=== PATIENT | female | born 1965 | race American Indian/Alaskan Native ===

== ENCOUNTER 2016-08-09 16:15 | Outpatient (CLI) | payer BC ==
--- NOTE | 2016-08-10 08:20 | Magnetic Resonance Report ---
MRI OF THE BRAIN AND PITUITARY WITHOUT AND WITH CONTRAST: 08/09/16 CLINICAL: Pituitary adenoma. COMPARISON: None. TECHNIQUE: Sagittal T1, axial FLAIR and T2 whole brain sequences plus sagittal, coronal and axial thin slice postcontrast T1 pituitary sequences on a 1.5 Concepcion magnet. 12.0cc of Multihance was injected intravenously for the contrast portion of the exam. Consent was obtained prior to the administration of contrast. FINDINGS: The ventricles and sulci are normal for age. No abnormal signal in the cerebrum, cerebellum or brainstem. The sella turcica is filled largely with CSF in the pituitary is flattened at the floor. Normal pituitary enhancement. No abnormal signal in the pituitary on T2. No abnormal focal enhancement or lack of enhancement. The suprasellar cistern, optic chiasm and infundibulum of the pituitary gland appear normal. The cavernous sinuses appear normal. There is a small amount of fluid in the left mastoid air cells. IMPRESSION: 1. Empty sella which is probably a normal variant and no evidence of pituitary adenoma. 2. Otherwise normal brain, cerebellum and brainstem. 3. Mild left mastoiditis.
== END 2016-08-09 16:16 | disposition home or self-care (01) ==
LOC: MRI 16:15
PROVIDERS: ATTEND Internal Medicine
DX: D35.2 Benign neoplasm of pituitary gland (principal); E22.1 Hyperprolactinemia; H70.92 Unspecified mastoiditis, left ear
CPT/HCPCS: 70553; A9577